=== PATIENT | female | born 1995 | race Caucasian/White ===

== ENCOUNTER 2021-06-29 06:21 | Inpatient (IN) | payer OTHER, SELFPAY ==
[2021-06-29] VITALS (193 sets, daily range): BP systolic 90–139; BP diastolic 35–98; PULSE 30–162; RESP 16–18; TEMP 36.4–37.7; O2SAT 80–100; BMI 32.1
[2021-06-29] MEDS: LACTATED RINGERS 1,000 ML 125 ML IV CONT ×4 (07:05→23:29)
[2021-06-29 07:19] LABS: Basophils Percent Auto 0.4 % (0.2-1.2); Eosinophils Absolute Auto 0.2 K/mm3 (0-0.3); Eosinophils Percent Auto 2.1 % (0-4.4); Hematocrit 29.8 % (37.0-47.0); Hemoglobin 9.5 g/dL (12.0-15.0); Immature Granulocyte Absolute 0.04 K/mm3 (0.00-0.031); Immature Granulocyte Percent A 0.4 % (0-0.5); Immature Platelet Fraction Pct 26.8 % (0.9-11.2); Lymphocytes Absolute Auto 2.14 K/mm3 (0.9-3.2); Lymphocytes Percent Auto 21.8 % (18.3-44.2); Mean Corpuscular HGB Conc 31.9 g/dl (32-36); Mean Corpuscular Hemoglobin 28.7 pg (26-34); Mean Platelet Volume 14.3 fl (7.4-10.4); Monocytes Absolute Auto 0.6 K/mm3 (0.1-0.6); Monocytes Percent Auto 6.5 % (2.6-8.5); Neutrophils Absolute Auto 6.8 K/mm3 (1.3-6.7); Neutrophils Percent Auto 68.8 % (45.5-73.1); Platelet Count Result 162 k/mm3 (150-375); Red Blood Count 3.31 M/mm3 (4.2-5.4); Red Cell Distribution Width 14.6 % (11.5-14.5); White Blood Count 9.8 K/mm3 (4.5-10.0)
--- NOTE | 2021-06-29 07:45 | WPDHPUPDATE1 ---
History and Physical Update Update Date/Time: 06/29/21 07:45 26 yo 39w2d who presents after SROM. Pt reports large amount of LOF at home. She also reports regular contractions but states they are mild. She denies any vaginal bleeding. She endorses good FM. Her pregnnacy is complicated by Rubella non-immune status. History and Physical has been reviewed, including an updated exam of the patient. There are NO changes in the patient's condition. Risks, benefits, and alternatives have been discussed and questions answered. Patient agrees to proceed with procedure. A/P: 26 yo G1 at 39w2d who presents after SROM admit to L&D routine admission orders Rh+ GBS neg Rubella non-immune, will vaccinate PP +SROM on exam cvx 2cm FHT cat 1 regular ctx on tocometer will augment with pitocin continuous EFM
[2021-06-29] MEDS: OXYTOCIN 30 UNITS/NS 500 ML 30 UNITS/500 ML BAG 6 UNITS IV CONT (07:48)
[2021-06-29 10:08] LABS: Rapid Plasma Reagin Non-Reactive (NonReactive)
[2021-06-29] MEDS: fentaNYL CITRATE INJ (*CRX) 100 MCG/2 ML VIAL 50 MCG IV PUSH (11:52)
[2021-06-29] MEDS: fentaNYL CITRATE INJ (*CRX) 100 MCG/2 ML VIAL IV PUSH (14:09)
--- NOTE | 2021-06-29 14:19 | P.PNAN_ITS ---
Anes - Eval Pre Procedure Procedure: labor epidural Date/Time: 06/29/21 14:19 Preop Diagnosis: labor pain Pre Op Diagnosis: Leaking Fluid Patient Data Age: 26 Gender: F Height: Weight: Last Vital Signs Temp 36.9 C 06/29/21 13:30 Pulse 73 06/29/21 14:16 BP 124/75 06/29/21 14:16 Allergies Allergy/AdvReac Type Severity Reaction Status Date / Time No Known Allergies Allergy Verified 06/09/21 13:40 Home Medications Medication Instructions Recorded Confirmed Type prenat.vits,gabriele,[id number] 1 tablet PO DAILY 06/09/21 06/29/21 History [ #2] Laboratory Tests 06/29/21 06/29/21 06/29/21 07:05 07:05 07:05 WBC 9.8 K/mm3 K/mm3 (4.5-10.0) RBC 3.31 M/mm3 L M/mm3 (4.2-5.4) Hgb 9.5 g/dL L g/dL (12.0-15.0) Hct 29.8 % L % (37.0-47.0) MCV 90.0 fl fl (80-100) MCH 28.7 pg pg (26-34) MCHC 31.9 g/dl L g/dl (32-36) RDW 14.6 % H % (11.5-14.5) Plt Count 162 k/mm3 k/mm3 (150-375) MPV 14.3 fl H fl (7.4-10.4) Immature Gran % (Auto) 0.4 % % (0-0.5) Neut % (Auto) 68.8 % % (45.5-73.1) Lymph % (Auto) 21.8 % % (18.3-44.2) [place] % (Auto) 6.5 % % (2.6-8.5) Eos % (Auto) 2.1 % % (0-4.4) Baso % (Auto) 0.4 % % (0.2-1.2) Lymph # (Auto) 2.14 K/mm3 K/mm3 (0.9-3.2) [place] # (Auto) 0.6 K/mm3 K/mm3 (0.1-0.6) Eos # (Auto) 0.2 K/mm3 K/mm3 (0-0.3) Baso # (Auto) 0.0 K/mm3 K/mm3 (0.0-0.1) Abs Immat Gran (auto) 0.04 K/mm3 H K/mm3 (0.00-0.031) Absolute Neuts (auto) 6.8 K/mm3 H K/mm3 (1.3-6.7) Absolute Nucleated RBC 0.0 K/mm3 K/mm3 (0.0-0.012) Nucleated RBC % 0.0 % % (0.0-0.2) % Immature Plt Fraction 26.8 % H % (0.9-11.2) RPR Non-reactive (NonReactive) Blood Type AB Positive Antibody Screen Negative Patient hx anesthesia problems: none Family hx anesthesia problems: none [facility] Family History Family History (Updated 06/09/21 @ 13:44 by Lizeth Contreras RN) Father Mini stroke Grandparent Diabetes mellitus Mini stroke Social History Social History Smoking status: Never smoker Second hand tobacco smoke exposure: Yes Substance use: never Spiritual care concerns: No Exam Day of Procedure 06/29/21 14:19
[2021-06-29] MEDS: AMPICILLIN 2 GM/NS 100 ML 2 GM/100 ML BAG IVPB (23:29)
[2021-06-30] VITALS (65 sets, daily range): BP systolic 92–147; BP diastolic 50–122; PULSE 68–180; RESP 16–18; TEMP 36.5–37.6; O2SAT 86–100
--- NOTE | 2021-06-30 02:23 | PM.IMHP ---
H&P: HPI History of Present Illness Date/Time: 06/30/21 02:23 Chief Complaint: SROM Narrative: 26 yo at 39w2d who presents with SROM. She reports mild contractions. She denies any vaginal bleeding or leakage of fluid. Review of Systems Cardiovascular: Cardiovascular: Denies chest pain, Denies leg edema, Denies palpitations, Denies dyspnea and Denies dyspnea on exertion Respiratory: Respiratory: Denies cough, Denies dyspnea and Denies dyspnea on exertion Gastrointestinal: Gastrointestinal: Denies abdominal pain, Denies constipation, Denies diarrhea, Denies nausea and Denies vomiting Genitourinary: Genitourinary: Denies hematuria, Denies urinary frequency, Denies dysuria, Denies pelvic pain, Denies urinary incontinence and Denies vaginal discharge Neurologic: Reports system reviewed and no additional complaints, except as documented Psychiatric: Psychiatric: Reports no additional psychiatric complaints Endocrine: Endocrine: Denies palpitations [facility] Family History Family History (Updated 06/09/21 @ 13:44 by Lizeth Contreras RN) Father Mini stroke Grandparent Diabetes mellitus Mini stroke Social History Social History Smoking status: Never smoker Second hand tobacco smoke exposure: Yes Substance use: never Spiritual care concerns: No Meds Home Medications and Allergies Home Medications Medication Instructions Recorded Confirmed Type prenat.vits,gabriele,jyd-vvoq-qkaqv 1 tablet PO DAILY 06/09/21 06/29/21 History [ #2] Allergies Allergy/AdvReac Type Severity Reaction Status Date / Time No Known Allergies Allergy Verified 06/09/21 13:40 Vital Signs Vital Signs - 24 hr 06/29/21 06:41 06/29/21 06:46 06/29/21 07:01 Temperature Pulse Rate 85 72 91 Respiratory Rate Blood Pressure 126/88 117/84 132/96 H Pulse Oximetry 06/29/21 07:16 06/29/21 07:30 06/29/21 07:31 Temperature 36.4 C L Pulse Rate 70 80 Respiratory Rate Blood Pressure 126/83 135/89 Pulse Oximetry 06/29/21 07:46 06/29/21 08:01 06/29/21 08:16 Temperature Pulse Rate 72 74 96 Respiratory Rate Blood Pressure 136/78 133/84 120/58 L Pulse Oximetry 06/29/21 08:31 06/29/21 08:46 06/29/21 09:01 Temperature Pulse Rate 63 67 66 Respiratory Rate Blood Pressure 116/70 122/93 H 116/84 Pulse Oximetry 06/29/21 09:16 06/29/21 09:30 06/29/21 09:31 Temperature 36.6 C Pulse Rate 68 61 Respiratory Rate Blood Pressure 131/80 128/82 Pulse Oximetry 06/29/21 09:46 06/29/21 10:01 06/29/21 10:16 Temperature Pulse Rate 61 66 63 Respiratory Rate Blood Pressure 128/84 123/80 127/81 Pulse Oximetry 06/29/21 10:31 06/29/21 10:46 06/29/21 11:01 Temperature Pulse Rate 68 72 81 Respiratory Rate Blood Pressure 128/87 128/80 116/75 Pulse Oximetry 06/29/21 11:17 06/29/21 11:30 06/29/21 11:31 Temperature 36.8 C Pulse Rate 81 76 Respiratory Rate Blood Pressure 111/56 L 106/62 Pulse Oximetry 06/29/21 11:46 06/29/21 12:01 06/29/21 12:16 Temperature Pulse Rate 68 66 66 Respiratory Rate Blood Pressure 119/68 128/79 126/87 Pulse Oximetry 06/29/21 12:31 06/29/21 12:46 06/29/21 13:01 Temperature Pulse Rate 61 72 72 Respiratory Rate Blood Pressure 124/78 125/78 131/83 Pulse Oximetry 06/29/21 13:16 06/29/21 13:30 06/29/21 13:31 Temperature 36.9 C Pulse Rate 64 65 Respiratory Rate Blood Pressure 126/84 122/75 Pulse Oximetry 06/29/21 13:46 06/29/21 14:01 06/29/21 14:16 Temperature Pulse Rate 86 84 73 Respiratory Rate Blood Pressure 139/98 H 120/80 124/75 Pulse Oximetry 06/29/21 14:31 06/29/21 14:46 06/29/21 15:01 Temperature Pulse Rate 77 79 99 Respiratory Rate Blood Pressure 120/77 126/80 131/75 Pulse Oximetry 06/29/21 15:16 06/29/21 15:28 06/29/21 15:29 Temperature Pulse Rate 80 91 95 Respiratory Rate Blood Pressure 128/75 126/
--- NOTE | 2021-06-30 02:27 | PM.OBPNLAB ---
Pain Control Date/time seen: 06/30/21 02:27 Pain control: epidural Pelvic Exam Dilation (cm): 10 Effacement (%): 100 station: 0 Contractions Monitor mode: Internal Contraction pattern: Regular Status status: Category l Assessment and Plan Plan: Comments: Pt has been complete and pushing for 2 hours. station remains at 0. Pt developed a fever prior to pushing. She has received ampicillin and gentamicin. Given arrest of descent with adequate contractions and maternal pushing effort in the setting or chorioamnionitis, I discussed the concerns with arrest of the 2nd stage of labor. recommended primary section. Risks, benefits, alternatives discussed. Verbal consent of section obtained. Plan to add Clindamycin and proceed with primary delivery.
--- NOTE | 2021-06-30 02:33 | WPDANESEPPF ---
Anes - Initial Pre Proc Eval Procedure: Operation Date: 06/30/21 02:45 Proposed Procedures p Section - Bernard Bro MD Date/Time: 06/30/21 02:33 Surgeon: Bernard Bro MD Pre Op Diagnosis: Arrest of descent Patient Data Age: 26 Gender: F Height: 1.5 m Weight: 72.2 kg Last Vital Signs Temp 36.6 C 06/30/21 01:52 Pulse 127 H 06/30/21 02:31 Resp 18 06/30/21 01:52 BP 111/75 06/30/21 02:31 Pulse Ox 98 06/30/21 02:26 Allergies Allergy/AdvReac Type Severity Reaction Status Date / Time No Known Allergies Allergy Verified 06/09/21 13:40 Home Medications Medication Instructions Recorded Confirmed Type prenat.vits,gabriele,dof-khcp-bvxct 1 tablet PO DAILY 06/09/21 06/29/21 History [ #2] Laboratory Tests 06/29/21 06/29/21 06/29/21 07:05 07:05 07:05 WBC 9.8 K/mm3 K/mm3 (4.5-10.0) RBC 3.31 M/mm3 L M/mm3 (4.2-5.4) Hgb 9.5 g/dL L g/dL (12.0-15.0) Hct 29.8 % L % (37.0-47.0) MCV 90.0 fl fl (80-100) MCH 28.7 pg pg (26-34) MCHC 31.9 g/dl L g/dl (32-36) RDW 14.6 % H % (11.5-14.5) Plt Count 162 k/mm3 k/mm3 (150-375) MPV 14.3 fl H fl (7.4-10.4) Immature Gran % (Auto) 0.4 % % (0-0.5) Neut % (Auto) 68.8 % % (45.5-73.1) Lymph % (Auto) 21.8 % % (18.3-44.2) [place] % (Auto) 6.5 % % (2.6-8.5) Eos % (Auto) 2.1 % % (0-4.4) Baso % (Auto) 0.4 % % (0.2-1.2) Lymph # (Auto) 2.14 K/mm3 K/mm3 (0.9-3.2) [place] # (Auto) 0.6 K/mm3 K/mm3 (0.1-0.6) Eos # (Auto) 0.2 K/mm3 K/mm3 (0-0.3) Baso # (Auto) 0.0 K/mm3 K/mm3 (0.0-0.1) Abs Immat Gran (auto) 0.04 K/mm3 H K/mm3 (0.00-0.031) Absolute Neuts (auto) 6.8 K/mm3 H K/mm3 (1.3-6.7) Absolute Nucleated RBC 0.0 K/mm3 K/mm3 (0.0-0.012) Nucleated RBC % 0.0 % % (0.0-0.2) % Immature Plt Fraction 26.8 % H % (0.9-11.2) RPR Non-reactive (NonReactive) Blood Type AB Positive Antibody Screen Negative Patient hx anesthesia problems: none Family hx anesthesia problems: none [facility] Family History Family History (Updated 06/09/21 @ 13:44 by Lizeth Contreras RN) Father Mini stroke Grandparent Diabetes mellitus Mini stroke Social History Social History Smoking status: Never smoker Second hand tobacco smoke exposure: Yes Substance use: never Spiritual care concerns: No Anes - Eval Final PreProcedure Day of Procedure 06/30/21 02:33 Patient weight: obese Heart: regular rate and rhythm Lungs: clear to auscultation and normal air movement Airway: Mallampati scale class II Neurological: alert and oriented Last oral intake: >/= 8 hours ASA classification: II Emergent: no Anesthetic plan: proceed Anesthesia type and monitoring: regional epidural and standard monitoring Informed Consent: The patient's anesthetic plan and its attendant risks and benefits were discussed with the patient/family/POA. Questions were solicited and answers provided to the satisfaction of the patient/family/POA.
[2021-06-30] MEDS: CLINDAMYCIN 900 MG/D5W 50 ML 900 MG/50 ML PIGGYBACK 50 MG IVPB (03:05)
--- NOTE | 2021-06-30 03:59 | W.PM.PROC2 ---
Procedure Note - Detailed Date of Procedure 06/30/21 Pre-op Diagnosis Arrest of descent Post-op Diagnosis same Procedure Performed low transverse section Surgeon Bernard Bro MD Anesthesia spinal and epidural Description of Procedure The patient was taken to the operating room. A combined spinal epidural anesthesic was administered and found to be adequate at a t-10 level. The patient was placed in a supine position with a slight left lateral tilt. A chávez catheter was placed with return of clear urine. A Bovie grounding pad was placed. Surgical prep was performed and surgical drapes were placed. A surgical time out was performed. A Pfannenstiel skin incision was then made with the scalpel and carried through to the underlying layer of fascia. The fascia was then incised in the midline and the incision was extended laterally with the Ford scissors. The superior aspect of the fascia was then grasped with the Lilli clamps, elevated, and the underlying rectus muscles dissected off bluntly and sharply. Attention was then turned to the inferior aspect of this incision which, in a similar fashion, was grasped, tented up with the Lilli clamps, and the rectus muscles dissected off both bluntly and sharply. The rectus muscles were then in the midline. The peritoneum was identified and entered bluntly. The peritoneal incision was then extended superiorly and inferiorly with good visualization of the bladder. The vesico-uterine serosa was identified and dissected to create a bladder flap. The bladder blade was reinserted. The uterus was inspected for rotation. A low-transverse uterine incision was made sharply with the scalpel and entry was made into the uterine cavity. An amniotomy was made and copious amounts of clear fluid were noted on return. The uterine incision was extended laterally bluntly. The bladder blade was removed and the fetus was delivered atraumatically. The nose and mouth were suctioned with a bulb syringe. The umbilical cord was clamped twice and cut. The was handed off to the waiting staff. At the time of the delivery, the had good color, tone and grimace. The infant cried with minimal stimulation. A second segment of umbilical cord was clamped and cut for cord blood gasses. Cord blood was collected for determination of the blood type and for direct [place]. The placenta was delivered spontaneously without difficulty. The placenta appeared grossly normal and complete. The uterus was exteriorized and cleared of all clots and debris. The uterine incision was repaired using 0-monocryl suture in a running fashion. A second layer of 0 Monocryl suture was used in an imbricating fashion to obtain excellent hemostasis and uterine strength. The uterine closure was inspected for hemostasis. The posterior aspect of the uterus and the broad ligaments were inspected and the posterior cul-de-sac cleared of fluid and blood clots. The uterine closure was again inspected and found to be hemostatic. The uterus was returned to the abdominal cavity. The pericolic gutters were inspected and were cleared of all blood clots and debris. The uterine closure was then re inspected to ensure hemostasis as were all subfascial tissues. The peritoneum was closed using 3-0 vicryl in a running fashion. The fascia was reapproximated with 0-vicryl in a running fashion. The subcutaneous tissue was irrigated and hemostasis achieved with electrocautery. It was reapproximated with 3-0 vicryl in a running fashion. The skin was closed with 4-0 vicryl in a subcuticular fashion. A sterile dressing was applied to the wound. The patient tolerated the procedure well. Sponge, lap and needle counts were correct times three. The patient was taken to recovery in stable condition and without anticipated complications. Estimated Blood Loss 515 Urine Output 300 Drains No Packing No Pathology yes (placenta) Complications No immediate complications C
[2021-06-30] MEDS: KETOROLAC 30 MG/ML VIAL (*BKC) 15 MG IM (04:31)
[2021-06-30] MEDS: OXYTOCIN 30 UNITS/NS 500 ML 30 UNITS/500 ML BAG 125 UNITS IV CONT (04:33)
--- NOTE | 2021-06-30 07:55 | OBPPTRN ---
0682 Patient transferred to post room #287 via stretcher. Support person present. Oriented to unit, room, information board, rooming in, admission packet and security measures. Patient verbalizes understanding.
--- NOTE | 2021-06-30 08:00 | PC.NURSE ---
Mother called out for assist with feeding. Mother is unable to get to wake for feeding. Reviewed feeding cues, frequencies, duration of feedings, feeding elimination flow sheet, and signs of adequate intake. Demonstrated stimulation techniques to wake infant for feeding. Assisted with infant to breast. Reviewed positioning/alignment in cross cradle, holding breast in ?U? hold and guided asymmetrical latch on. Reviewed rational for each. was unable to latch and draw nipple in deeply, several attempts made. Discussed nipple shield use and how shield may assist with latch. Mother is willing to attempt using shield. Initiated nipple shield due to infant unable to maintain latch. Reviewed nipple shield precautions and possible complications. Instructions given on application and cleaning of shield. Patient able to return demonstration on proper application of shield. Discussed the need to initiate pumping if infant continues to nurse with the shield. Patient verbalizes understanding. With shield in place, infant able to latch correctly within a few attempts. nursed sleepily with a few bursts of suckling with occasional swallowing noted. Reviewed signs of a correct latch, effective nursing and suck swallow ratio. was able to maintain latch without discomfort to mother. Suggested mother stimulate while feeding to increase stimulate, increase intake and to assist with maintaining deep latch. Demonstrated how to adjust latch more deeply while feeding if needed. Discussed the difference of effective vs ineffective feeding. Reviewed is latching with good burst of suckling, he is not feeding consistently with adequate milk transfer at this time and needs to be supplement after . Parents would like to wait for supplementation until next feeding. Instructed mother to call out for RN assistance if she is unable to latch infant for feeding or she has discomfort with nursing. Instructed feeding should be initiated three hours from start of last feeding or if feeding cues are noted before. Mother voiced understanding of information shared.
[2021-06-30] MEDS: DEXTROSE 5%/0.45% SOD CHL 1,000 ML 125 ML IV CONT (09:21)
[2021-06-30] MEDS: POLYSACCHARIDE IRON COMPLEX 150 MG CAPSULE PO ×2 (09:30→16:07)
[2021-06-30] MEDS: DOCUSATE SODIUM 100 MG CAPSULE PO ×2 (09:30→16:07)
[2021-06-30] MEDS: MULTIVIT/MIN/PREN/FOL AC/IRON TABLET 1 TAB PO (09:30)
--- NOTE | 2021-06-30 12:20 | PC.NURSE ---
Breast pump provided due to nipple shield use/ineffective feeding. Instructions given on breast pump care and usage, pumping schedule, nipple care, and collection and storage of breast milk. Encouraged [id number], breast massage and manual expression to stimulate supply. Assessed patient for correct flange size, placement and draw. Patient verbalizes and demonstrates understanding of instructions.
--- NOTE | 2021-06-30 12:35 | PC.NURSE ---
Addendum entered by Goldie Vega RN 06/30/21 14:36: should be charted for 1145 Original Note: Mother called out for assist with feeding. Mother reports infant is sleepy and makes eager attempts to latch and is unable to maintain latch. is able to freely thrust tongue past gum ridge and flange both lips. Skin is intact on both nipples, no redness and bruising noted. Nipple care reviewed of lanolin after feedings, warm compresses as needed, gel pads provided and reviewed care and cleaning. Reviewed infant feeding cues, frequencies, duration of feedings, feeding elimination flow sheet, and signs of adequate intake. Demonstrated stimulation techniques to wake for feeding. Assisted with to breast. Reviewed positioning/alignment in cross cradle, holding breast in ?U? hold and guided asymmetrical latch on. Reviewed rational for each. Infant was unable to latch and draw nipple in deeply, several attempts made. Discussed nipple shield use and how shield may assist with latch. Mother is willing to attempt using shield. Initiated nipple shield due to flat/inverted nipple, unable to latch, unable to maintain latch, disorganized suck or tongue sucking. Reviewed nipple shield precautions and possible complications. Instructions given on application and cleaning of shield. Patient able to return demonstration on proper application of shield. Discussed the need to initiate pumping if continues to nurse with the shield. Patient verbalizes understanding. With shield in place, able to latch correctly within a few attempts. Infant nursed eagerly with steady draws and occasional swallowing noted for bursts followed with long pausing. Reviewed signs of a correct latch, effective nursing and suck swallow ratio. was able to maintain latch without discomfort to mother. Suggested mother stimulate while feeding to increase stimulate, increase intake and to assist with maintaining deep latch. Demonstrated how to adjust latch more deeply while feeding if needed. Discussed the difference of effective vs ineffective feeding. Reviewed is latching with good burst of suckling, he is not feeding consistently with adequate milk transfer at this time and needs to be supplement after . Feeding options discussed, Feeding Plan is for mother to put to breast each feeding for up to 15 minutes, then pace feed supplement 20 mls and pump for 10-15 minutes. Parents are comfortable with supplementation and pumping. If begins to nurse effectively with long draws and frequent swallowing noted, infant may decrease supplementation and discontinue pumping. Suggested mother have LC rotoformer backtender observe feeding before discontinuing supplementation. Discussed increasing supplementation as infant requires to satisfactions. Reviewed paced feeding and suggested to stop when infant is satisfied, as long as is having required output. With increased supplementation may not want to feed for 4 hours. Mother will continue to pump on feeding schedule and will increase session to 20 minutes if pumping every 4 hours. Instructed mother to call out for RN assistance if she is unable to latch infant for feeding or she has discomfort with nursing. Instructed feeding should be initiated three hours from start of last feeding or if feeding cues are noted before. Mother voiced understanding of information shared.
--- NOTE | 2021-06-30 16:07 | PM.OBPNVD ---
OB - PN: Subj Subjective Date/time seen: 06/30/21 16:07 Interval history: Patient doing well today. she has ambulated to the chair. She is tolerating PO. She reports adequate pain control. Her bleeding is normal and she reports normal lochia. She denies fever, chills, N/V. She has not yet passed flatus. Patient comments: no complaints and pain well controlled; no flatus present OB - PN: Obj Data Labs CBC & Chem 7: 06/29/21 07:05 OB - PN A/P Plan day: 1 Plan: routine care Comments: patient doing well s/p chávez, voiding spontaneously tolerating PO hypotensive but asymptomatic. will continue to monitor. CBC in Am continue routine PP care Time Spent With Patient Time: Total time spent is greater than 50% in coordination of care (as documented) at patient's floor/unit and/or counseling patient: Time with patient: less than 15 minutes Review of Systems Constitutional: Constitutional: Reports no additional constitutional complaints Cardiovascular: Cardiovascular: Reports no additional cardiovascular complaints Respiratory: Respiratory: Reports no additional respiratory complaints Gastrointestinal: Gastrointestinal: Reports no additional gastrointestinal complaints Genitourinary: Genitourinary: Reports no additional female genitourinary complaints Exam Const: General: comfortable and no acute distress Resp: Effort & Inspection: normal respiratory effort Auscultation: clear to auscultation bilaterally Cardio: Rate: regular rate GI: GI Palp: Yes Soft to palpation and Yes Tenderness to palpation present (GI) (appropriately tender around incision ) Auscultation: normal bowel sounds Other: fundus firm and below umbilicus Incision C/D/I Urinary Catheter: Urinary Catheter: urine clear Psych: Appearance: grossly normal Mental Status: mental status grossly normal Affect: normal affect
[2021-06-30] MEDS: IBUPROFEN 600 MG TABLET PO ×2 (16:16→23:44)
[2021-07-01] VITALS (11 sets, daily range): BP systolic 104–136; BP diastolic 48–89; PULSE 77–133; RESP 16–18; TEMP 36.4–39.3; O2SAT 95–99
[2021-07-01] MEDS: HYDROcodone/acetaminophen (*CRX) 5-325 MG TABLET 1 TAB PO ×5 (04:02→21:10)
[2021-07-01 04:56] LABS: Basophils Percent Auto 0.2 % (0.2-1.2); Eosinophils Absolute Auto 0.1 K/mm3 (0-0.3); Eosinophils Percent Auto 0.5 % (0-4.4); Hematocrit 21.4 % (37.0-47.0); Immature Granulocyte Absolute 0.06 K/mm3 (0.00-0.031); Immature Granulocyte Percent A 0.6 % (0-0.5); Immature Platelet Fraction Pct 21.8 % (0.9-11.2); Lymphocytes Absolute Auto 1.63 K/mm3 (0.9-3.2); Lymphocytes Percent Auto 15.9 % (18.3-44.2); Mean Corpuscular HGB Conc 31.8 g/dl (32-36); Mean Corpuscular Hemoglobin 29.1 pg (26-34); Mean Corpuscular Volume 91.5 fl (80-100); Mean Platelet Volume 14.1 fl (7.4-10.4); Monocytes Absolute Auto 0.7 K/mm3 (0.1-0.6); Monocytes Percent Auto 7.2 % (2.6-8.5); Neutrophils Absolute Auto 7.7 K/mm3 (1.3-6.7); Neutrophils Percent Auto 75.6 % (45.5-73.1); Platelet Count Result 131 k/mm3 (150-375); Red Blood Count 2.34 M/mm3 (4.2-5.4); White Blood Count 10.2 K/mm3 (4.5-10.0)
[2021-07-01 05:18] LABS: Hemoglobin 6.8 g/dL (12.0-15.0)
[2021-07-01] MEDS: POLYSACCHARIDE IRON COMPLEX 150 MG CAPSULE PO ×2 (07:18→16:55)
[2021-07-01] MEDS: MULTIVIT/MIN/PREN/FOL AC/IRON TABLET 1 TAB PO (07:18)
[2021-07-01] MEDS: SIMETHICONE 80 MG TAB.CHEW PO (07:18)
[2021-07-01] MEDS: DOCUSATE SODIUM 100 MG CAPSULE PO ×2 (07:18→16:55)
[2021-07-01] MEDS: IBUPROFEN 600 MG TABLET PO ×3 (07:18→21:10)
--- NOTE | 2021-07-01 08:50 | P.PNOB_ITS ---
OB - PN: Subj Subjective Date/time seen: 07/01/21 08:50 Interval history: Patient doing well today. she is ambulating. She is tolerating PO. She reports adequate pain control. Her bleeding is normal and she reports normal lochia. She denies fever, chills, N/V. She has passed flatus. Patient comments: no complaints, pain well controlled, tolerating diet and flatus present OB - PN: Obj Data Labs CBC & Chem 7: 07/01/21 04:08 Labs: Laboratory Results - last 24 hr 07/01/21 04:08 WBC 10.2 H RBC 2.34 L Hgb 6.8 L* Hct 21.4 L MCV 91.5 MCH 29.1 MCHC 31.8 L RDW 15.0 H Plt Count 131 L MPV 14.1 H Immature Gran % (Auto) 0.6 H Neut % (Auto) 75.6 H Lymph % (Auto) 15.9 L [place] % (Auto) 7.2 Eos % (Auto) 0.5 Baso % (Auto) 0.2 Lymph # (Auto) 1.63 [place] # (Auto) 0.7 H Eos # (Auto) 0.1 Baso # (Auto) 0.0 Abs Immat Gran (auto) 0.06 H Absolute Neuts (auto) 7.7 H Absolute Nucleated RBC 0.0 Nucleated RBC % 0.0 % Immature Plt Fraction 21.8 H OB - PN A/P Plan day: 1 Plan: routine care Comments: patient doing well H/H 6.8, pt asymptomatic, recommended blood transfusion. will plan for transfusion of pRBC afebrile, VSS incision C/D/I chávez removed, voiding spontaneously plan for circumcision today. Risks, benefits, alternatives discussed. consent obtained continue routine post op care Time Spent With Patient Time: Total time spent is greater than 50% in coordination of care (as documented) at patient's floor/unit and/or counseling patient: Time with patient: less than 15 minutes Review of Systems Constitutional: Constitutional: Reports no additional constitutional complaints Cardiovascular: Cardiovascular: Reports no additional cardiovascular complaints Respiratory: Respiratory: Reports no additional respiratory complaints Gastrointestinal: Gastrointestinal: Reports no additional gastrointestinal complaints Genitourinary: Genitourinary: Reports no additional female genitourinary complaints Exam Const: General: comfortable and no acute distress Resp: Effort & Inspection: normal respiratory effort Auscultation: clear to auscultation bilaterally Cardio: Rate: regular rate GI: GI Palp: Yes Soft to palpation, Yes Tenderness to palpation present (GI) (around incision ) and No Guarding due to palpation present (GI) Auscultation: normal bowel sounds Other: incision C/D/I, covered with Dermabond Psych: Appearance: grossly normal Mental Status: mental status grossly normal Affect: normal affect
--- NOTE | 2021-07-01 09:23 | WPDANLDPN2 ---
Anes-Prog Note L&D Date/Time: 07/01/21 09:23 Comfortable throughout: labor and section Neuraxial method: epidural Epidural/Spinal procedure site: clean & non-tender Neuro status: Neuro function grossly intact. Cardiovascular status: normal Respiratory status: normal Airway patency: baseline Mental status: baseline Post-Op hydration status: normal Vital Signs: Last Vital Signs Temp 37.0 C 07/01/21 07:50 Pulse 77 07/01/21 07:50 Resp 16 07/01/21 07:50 BP 104/48 L 07/01/21 07:50 Pulse Ox 99 07/01/21 07:50 Pain score (VAS): 0 I/O: Intake & Output 06/30/21 07/01/21 07/01/21 23:59 07:59 15:59 Intake Total 1000 1800 Output Total 2450 3050 Balance -1450 -1250 Post-procedural complaints: none Patient feedback: Patient satisfied with anesthetic care.
--- NOTE | 2021-07-01 09:24 | WPDANLDNPN2 ---
Anes-Prog Note L&D-Neuraxial Date/Time: 07/01/21 09:24 Neuraxial medications: epidural PF morphine Opiod-related complaints: none Patient feedback: Patient satisfied with post-operative pain management.
--- NOTE | 2021-07-01 09:30 | PC.NURSE ---
Consult with pt., mother reports is more awake and eagerly nursing using the nipple shield for all feedings nursing at least 15 minutes each attempt. FOB will supplement formula while mother pumps. Mother is pumping without difficulties or discomfort. Suggested to wake to feed by 4 hours from last feeding, increasing supplement to 15 each feeding. Mother will pump 20 minutes if pumping every 4 hours 15 minutes every three. Mother questioned if she could continue to breastfeed while receive blood transfusion. Assured mother to continue to breastfeed if she feels up to it and resting between feedings.
[2021-07-01 16:12] LABS: Total Bilirubin Imm Post TxRxn 0.8 mg/dL (0.2-1.3)
--- NOTE | 2021-07-01 16:19 | PC.NURSE ---
transfusion reaction occurred @ 1500 right at the completion of the blood. Transfusion stopped @ 1500. 1516 lab/Blood Back notified. 1520 Dr. Bro notified. 1533 Web Methods Developer Jay notified. 1545 Labs and UA done and walked down to lab with blood tubing and blood bag. VS monitored. Pt is in bed resting now.
[2021-07-01 16:43] LABS: TXRXN Occult Blood Urine Immed 1+ (Negative)
[2021-07-01 20:20] LABS: TXRXN Occult Blood Urine 4 Hr 3+ mg/dL (Negative); TXRXN RBC Urine 4 Hour >75 /hpf (0-2)
[2021-07-01 21:37] LABS: Total Bilirubin 5hr Post TX RX 0.6 mg/dL (0.2-1.3)
[2021-07-02] VITALS: BP 105/77; PULSE 83; RESP 18; TEMP 36.4
[2021-07-02] MEDS: IBUPROFEN 600 MG TABLET PO ×2 (03:39→11:14)
[2021-07-02] MEDS: HYDROcodone/acetaminophen (*CRX) 5-325 MG TABLET 1 TAB PO ×2 (03:39→11:13)
[2021-07-02 03:50] LABS: Hematocrit 27.9 % (37.0-47.0); Hemoglobin 8.9 g/dL (12.0-15.0); Mean Corpuscular HGB Conc 31.9 g/dl (32-36); Mean Corpuscular Hemoglobin 29.1 pg (26-34); Mean Corpuscular Volume 91.2 fl (80-100); Mean Platelet Volume 12.6 fl (7.4-10.4); Platelet Count Result 149 k/mm3 (150-375); Red Blood Count 3.06 M/mm3 (4.2-5.4); Red Cell Distribution Width 14.9 % (11.5-14.5); White Blood Count 8.1 K/mm3 (4.5-10.0)
[2021-07-02 04:05] VITALS: BP 126/80; PULSE 88; RESP 18; TEMP 38.1
[2021-07-02 05:15] VITALS: TEMP 36.9
--- NOTE | 2021-07-02 07:24 | PM.OBDSVD ---
DS: Admitting Diagnosis Discharge Date 07/02/21 Admitting Diagnosis intrauterine at term SROM OB - DS: Summary OB Procedures : None OB Procedures Intrapartum: OB Procedures: : None Peripartum Data Delivery Method: Section Procedures: Procedures Operation Date: 06/30/21 02:45 Actual Procedure Side Surgeon p Section Bilateral Bernard Bro MD complications: none Status at Discharge Functional status at discharge: independent ambulation Overall status at discharge: patient is progressing back to baseline Time Spent with Patient Time attestation: Total time spent providing and/or coordinating discharge services: Time spent: Less than 30 minutes Exam Const: General: comfortable and no acute distress Resp: Effort & Inspection: normal respiratory effort Auscultation: clear to auscultation bilaterally Cardio: Rate: regular rate GI: Inspection: non-distended GI Palp: Yes Soft to palpation, No Firmness to palpation present (GI), Yes Tenderness to palpation present (GI) (mild tenderness over incision ) and No Guarding due to palpation present (GI) Auscultation: normal bowel sounds Psych: Appearance: grossly normal Mental Status: mental status grossly normal DS: Data Data Completed and Pending Pending studies at discharge: Pending at discharge 06/30/21 03:38 Surgical [PTH] Routine Labs on day of discharge: Labs from last 24 hours 07/02/21 07/01/21 07/01/21 03:41 20:58 19:59 WBC 8.1 RBC 3.06 L Hgb 8.9 L Hct 27.9 L MCV 91.2 MCH 29.1 MCHC 31.9 L RDW 14.9 H Plt Count 149 L MPV 12.6 H Post-Trans Total Bili 0.6 Ur Blood, Post-Transfus 3+ H Post-Trnsf Ur Hematuria >75 H Blood Type Antibody Screen Crossmatch Pre-Trans Antibody Scrn Post-Trans Antibody Scrn 07/01/21 07/01/21 07/01/21 15:45 15:45 15:45 WBC RBC Hgb Hct MCV MCH MCHC RDW Plt Count MPV Post-Trans Total Bili 0.8 Ur Blood, Post-Transfus 1+ H Post-Trnsf Ur Hematuria 3-5 H Blood Type Antibody Screen Crossmatch Pre-Trans Antibody Scrn Negative Post-Trans Antibody Scrn Negative 06/29/21 07:05 WBC RBC Hgb Hct MCV MCH MCHC RDW Plt Count MPV Post-Trans Total Bili Ur Blood, Post-Transfus Post-Trnsf Ur Hematuria Blood Type AB Positive Antibody Screen Negative Crossmatch See Detail Pre-Trans Antibody Scrn Post-Trans Antibody Scrn Discharge Plan Discharge Discharging Clinician: Bernard Bro Patient Disposition: Home, Self-Care Activity: as tolerated and pelvic rest Diet: regular Patient Instructions: Antibiotic Form, (DC) Stand Alone Forms: General Discharge Information Follow-up/Referrals: Bernard Bro MD [Physician] - 4 Weeks Discharge Medications: New hydrocodone-acetaminophen 5-325 mg tablet 1 tablet PO Q6H PRN (Reason: pain) Qty: 28 RF: 0 polysaccharide iron complex 150 mg iron Capsule 150 mg PO BIDWM Qty: 60 RF: 0 ibuprofen 600 mg Tablet 600 mg PO Q6H PRN (Reason: Cramping) Qty: 30 RF: 0 Continued #2 Tablet 1 tablet PO DAILY RF: 0 Date of admission: 06/29/21 06:21 Primary Care Provider: PHYSICIAN,SUCTION WORKER Admitting Provider: Bernard Bro Attending physician on admission: Bernard Bro Condition: Stable
[2021-07-02 08:10] VITALS: BP 111/72; PULSE 79; RESP 18; TEMP 37.3; O2SAT 100
[2021-07-02] MEDS: DOCUSATE SODIUM 100 MG CAPSULE PO (11:13)
[2021-07-02] MEDS: MULTIVIT/MIN/PREN/FOL AC/IRON TABLET 1 TAB PO (11:13)
[2021-07-02] MEDS: POLYSACCHARIDE IRON COMPLEX 150 MG CAPSULE PO (11:13)
[2021-07-02] MEDS: MEASLES,MUMPS,RUBELLA VACCINE 0.5 ML VIAL SUB-Q (11:14)
== END 2021-07-02 14:06 | disposition home or self-care (01) | DRG 788 ==
LOC: ANHLDR 06-30 02:34 → ANHOB2 06-30 06:47
PROVIDERS: Admitting Provider Student in an Organized Health Care Education/Training Program; Visit Provider Student in an Organized Health Care Education/Training Program
PROC: 10D00Z1 Extraction of Products of Conception, Low, Open Approach (ICD-10-PCS; CPT 59514; principal; 2021-06-30 02:45)
DX: O32.4XX0 Maternal care for high head at term, not applicable or unspecified (principal); Z37.0 Single live birth; Z3A.39 39 weeks gestation of pregnancy; O36.8330 Maternal care for abnormalities of the fetal heart rate or rhythm, third trimester, not applicable or unspecified
CPT/HCPCS: 36415; 36430; 81001; 82247; 85025; 85027; 85055; 86592; 86850; 86900; 86901; 86920; 87070; 87075; 87205; 88307; 90710; A9270; J0290; J1580; J1885; J2274; J2405; J2590; J2795; J3010; J7120; P9016